=== PATIENT | female | born 1965 | race Caucasian/White ===

== ENCOUNTER 2019-10-29 15:14 | Outpatient (CLI) | payer OTHER, SELFPAY ==
--- NOTE | 2019-10-29 15:16 | MM_ITS ---
WS: [id number] BILATERAL DIGITAL SCREENING MAMMOGRAPHY WITH CAD CLINICAL INFORMATION: SCREENING HISTORY: Screening mammogram. Right nipple burning . COMPARISON: September 26, 2018 TECHNIQUE: Bilateral CC and MLO views. FINDINGS: The breasts are composed of heterogeneous fibroglandular density tissue, which can limit the detectio n of small underlying mass lesions. Increasing cluster of punctate calcifications, some in a ductal d istribution. Recommend spot compression magnification views. Left breast is unchanged. MM/[place] [id number] IMPRESSION: BI-RADS: 0-Incomplete: Need additional imaging evaluation FOLLOW UP: Need Additional Imaging
== END 2019-10-29 15:15 | disposition home or self-care (01) ==
LOC: RADSHAW 15:14
PROVIDERS: Family Provider Family Medicine; PCP Family Medicine; Visit Provider Family Medicine
DX: Z12.31 Encounter for screening mammogram for malignant neoplasm of breast (principal)
CPT/HCPCS: 77067

== ENCOUNTER 2019-12-14 10:18 | Outpatient (CLI) | payer OTHER, SELFPAY ==
--- NOTE | 2019-12-14 10:23 | MM_ITS ---
WS: [id number] RIGHT DIGITAL MAMMOGRAPHY WITH CAD CLINICAL INFORMATION: RT BREAST CALCIFICATIONS HISTORY: Additional views COMPARISON: October 29, 2019 TECHNIQUE: 5 views of the right breast were obtained. FINDINGS: Scattered fibroglandular densities of the right breast. Again seen is the cluster of punctate calcifi cations some in a ductal distribution lower inferior quadrant right breast. These have increased sinc e 2018 as previously described. Recommend further evaluation with stereotactic guided biopsy. MM/[place] [id number] IMPRESSION: BI-RADS: 4B-Suspicious: Intermediate FOLLOW UP: Stereotactic Biopsy Recommended
== END 2019-12-14 10:19 | disposition home or self-care (01) ==
LOC: RADSHAW 10:20
PROVIDERS: Family Provider Family Medicine; PCP Family Medicine; Visit Provider Family Medicine
DX: R92.1 Mammographic calcification found on diagnostic imaging of breast (principal)
CPT/HCPCS: 77065

== ENCOUNTER 2020-01-07 12:20 | Outpatient (CLI) | payer OTHER, SELFPAY ==
--- NOTE | 2020-01-07 12:38 | MM_ITS ---
WS: [id number] STEREOTACTIC RIGHT BREAST BIOPSY WITH VACUUM ASSISTANCE. History: Heterogeneous right breast calcifications. Biopsy recommended for suspicious calcifications. Comparison: December 14, 2019 Procedure, risks, and complications were discussed the patient who agreed to proceed. Prior imaging w as reviewed. Cluster of calcifications within the right breast are localized. Stereotactic imaging was performed. Patient was prepped and draped in usual sterile fashion. After 1% lidocaine, calcifications were targ eted stereotactically in the right breast. Small incision was made. Needle advanced into the cluster of calcifications right breast with imaging demonstrating appropriate position relative to the calcif ications. Multiple vacuum-assisted core biopsies were obtained x3. Postprocedure imaging demonstrates calcifications within the biopsy specimen. The biopsy cavity was lavaged. Titanium clip was placed at the biopsy site. Postprocedure imaging dem onstrates clip in good position. No immediate complications. MM/MM surgical specimen RT IMPRESSION: 1. Uncomplicated vacuum-assisted stereotactic biopsy of calcifications in the right breast. PATHOLOGY: - Hyalinized fibroadenoma with coarse microcalcifications - Usual ductal hyperplasia/florid epithelial hyperplasia, with microcalcificati ons - Fibrocystic change and focal columnar cell hyperplasia - No carcinoma in situ or invasive malignancy seen BI-RADS 3 PROBABLY BENIGN RECOMMEND 6 MONTH DIAGNOSTIC MAMMOGRAPHIC FOLLOW-UP POSTBIOPSY
--- NOTE | 2020-01-07 12:38 | MM_ITS ---
WS: [id number] STEREOTACTIC RIGHT BREAST BIOPSY WITH VACUUM ASSISTANCE. History: Heterogeneous right breast calcifications. Biopsy recommended for suspicious calcifications. Comparison: December 14, 2019 Procedure, risks, and complications were discussed the patient who agreed to proceed. Prior imaging w as reviewed. Cluster of calcifications within the right breast are localized. Stereotactic imaging was performed. Patient was prepped and draped in usual sterile fashion. After 1% lidocaine, calcifications were targ eted stereotactically in the right breast. Small incision was made. Needle advanced into the cluster of calcifications right breast with imaging demonstrating appropriate position relative to the calcif ications. Multiple vacuum-assisted core biopsies were obtained x3. Postprocedure imaging demonstrates calcifications within the biopsy specimen. The biopsy cavity was lavaged. Titanium clip was placed at the biopsy site. Postprocedure imaging dem onstrates clip in good position. No immediate complications. MM/MM biopsy RT vac assist [id number] IMPRESSION: 1. Uncomplicated vacuum-assisted stereotactic biopsy of calcifications in the right breast. PATHOLOGY: - Hyalinized fibroadenoma with coarse microcalcifications - Usual ductal hyperplasia/florid epithelial hyperplasia, with microcalcificati ons - Fibrocystic change and focal columnar cell hyperplasia - No carcinoma in situ or invasive malignancy seen BI-RADS 3 PROBABLY BENIGN RECOMMEND 6 MONTH DIAGNOSTIC MAMMOGRAPHIC FOLLOW-UP POSTBIOPSY
--- NOTE | 2020-01-07 12:38 | MM_ITS ---
WS: [id number] STEREOTACTIC RIGHT BREAST BIOPSY WITH VACUUM ASSISTANCE. History: Heterogeneous right breast calcifications. Biopsy recommended for suspicious calcifications. Comparison: December 14, 2019 Procedure, risks, and complications were discussed the patient who agreed to proceed. Prior imaging w as reviewed. Cluster of calcifications within the right breast are localized. Stereotactic imaging was performed. Patient was prepped and draped in usual sterile fashion. After 1% lidocaine, calcifications were targ eted stereotactically in the right breast. Small incision was made. Needle advanced into the cluster of calcifications right breast with imaging demonstrating appropriate position relative to the calcif ications. Multiple vacuum-assisted core biopsies were obtained x3. Postprocedure imaging demonstrates calcifications within the biopsy specimen. The biopsy cavity was lavaged. Titanium clip was placed at the biopsy site. Postprocedure imaging dem onstrates clip in good position. No immediate complications. MM/[place] [id number] IMPRESSION: 1. Uncomplicated vacuum-assisted stereotactic biopsy of calcifications in the right breast. PATHOLOGY: - Hyalinized fibroadenoma with coarse microcalcifications - Usual ductal hyperplasia/florid epithelial hyperplasia, with microcalcificati ons - Fibrocystic change and focal columnar cell hyperplasia - No carcinoma in situ or invasive malignancy seen BI-RADS 3 PROBABLY BENIGN RECOMMEND 6 MONTH DIAGNOSTIC MAMMOGRAPHIC FOLLOW-UP POSTBIOPSY
== END 2020-01-07 12:21 | disposition home or self-care (01) ==
LOC: RADSHAW 12:20
PROVIDERS: Family Provider Family Medicine; PCP Family Medicine; Visit Provider Family Medicine
DX: R92.1 Mammographic calcification found on diagnostic imaging of breast (principal); D24.1 Benign neoplasm of right breast; N62 Hypertrophy of breast
CPT/HCPCS: 19081; 77065; 88305; J2001

== ENCOUNTER 2020-02-25 09:38 | Outpatient (CLI) | payer OTHER, SELFPAY ==
--- NOTE | 2020-02-25 09:45 | XRR_ITS ---
PROCEDURE INFORMATION: Exam: XR Abdomen, 1 View Exam date and time: 02/25/2020 9:47 AM Age: 54 years old Clinical indication: Condition or disease; Other: Stone; Prior surgery; Surgery type: Hysto, gb TECHNIQUE: Imaging protocol: XR of the abdomen. Views: Frontal supine view of the abdomen. 1 View. COMPARISON: ID XR KUB [id number] 04/09/2017 2:00 PM FINDINGS: Gastrointestinal tract: Prominent stool, without bowel dilatation. Organs: Status post cholecystectomy. Stable 6 mm calcification overlying the left renal fossa, suggesting urolithiasis. Vasculature: Subcentimeter pelvic calcifications, presumably vascular in etiology. Bones/joints: Osteitis pubis. Degenerative change and mild scoliosis. XR/XR KUB [id number] IMPRESSION: 1. Stable 6 mm calcification overlying the left renal fossa, suggesting urolithiasis. 2. Additional findings as described above.
== END 2020-02-25 09:39 | disposition home or self-care (01) ==
LOC: RAD 09:42
PROVIDERS: PCP Family Medicine; Visit Provider Urology
DX: N20.0 Calculus of kidney (principal)
CPT/HCPCS: 74018; 81001

== ENCOUNTER 2020-07-26 08:13 | Outpatient (CLI) | payer OTHER, SELFPAY ==
--- NOTE | 2020-07-26 08:22 | MM_ITS ---
WS: [id number] RIGHT DIGITAL MAMMOGRAPHY WITH CAD CLINICAL INFORMATION: 6 MO F/U RT CALCIFICATION HISTORY: Six-month follow-up COMPARISON: January 07, 2020 TECHNIQUE: 10 views of the right breast were obtained. FINDINGS: Scattered fibroglandular densities of the right breast. Biopsy clip inferior right breast. Postoperat dmitry changes about the biopsy cavity improved. A few tiny punctate calcifications. Stable clustered ca lcifications inferior right breast. No significant interval changes. No suspicious focal mass, asymmetry, calcifications, or architectural distortion. No evidence of jose francisco gnancy. MM/[place] [id number] IMPRESSION: BI-RADS: 2-Benign FOLLOW UP: 1 Year Follow-up Recommend return to annual diagnostic mammography.
== END 2020-07-26 08:14 | disposition home or self-care (01) ==
PROVIDERS: PCP Family Medicine; Visit Provider Family Medicine
DX: R92.1 Mammographic calcification found on diagnostic imaging of breast (principal)
CPT/HCPCS: 77065

== ENCOUNTER → 2021-06-14 08:19 | Outpatient (BNVA) | payer OTHER, SELFPAY | PROVIDERS: PCP Nurse Practitioner Family; Visit Provider Nurse Practitioner Family | DX: N20.9 Urinary calculus, unspecified (principal); N39.0 Urinary tract infection, site not specified | CPT/HCPCS: 81003 ==

== ENCOUNTER 2021-06-29 15:05 | Outpatient (CLI) | payer OTHER, SELFPAY ==
--- NOTE | 2021-06-29 14:30 | XR_ITS ---
WS: [id number] Exam: XR KUB [id number] Date/Time of Exam: 06/29/2021 3:12 PM Reason For Exam: UROLITHIASIS Comparison 02/25/2020. No sign of bowel obstruction or free air. No calcifications noted in the region of the kidneys. Signs of prior cholecystectomy. No sign of organ enlargement. Degenerative changes of the lumbar spine. No nspecific pelvic calcifications noted. XR/XR KUB [id number] IMPRESSION: 1. No acute abdominal process identified.
== END 2021-06-29 15:06 | disposition home or self-care (01) ==
LOC: RAD 15:07
PROVIDERS: PCP Nurse Practitioner Family; Visit Provider Urology
DX: N20.9 Urinary calculus, unspecified (principal)
CPT/HCPCS: 74018; 81003

== ENCOUNTER 2021-07-21 09:27 | Outpatient (CLI) | payer OTHER, SELFPAY ==
--- NOTE | 2021-07-21 09:34 | XR_ITS ---
WS: [id number] Left foot, 3 views, 07/21/2021 Clinical Data: PAIN IN LEFT FOOT Comparison: None. Findings: No fractures or dislocations are seen. No bone destruction or erosion is noted. The joint spaces and soft tissues are normal. There is a plantar spur and an Achilles spur. XR/XR foot LT min 3V* [id number] Impression: Negative left foot.
== END 2021-07-21 09:28 | disposition home or self-care (01) ==
LOC: RAD 09:29
PROVIDERS: PCP Nurse Practitioner Family; Visit Provider Nurse Practitioner Family
DX: M79.672 Pain in left foot (principal)
CPT/HCPCS: 73630

== ENCOUNTER → 2021-07-27 15:35 | Outpatient (BNVA) | payer OTHER, SELFPAY | PROVIDERS: PCP Nurse Practitioner Family; Visit Provider Nurse Practitioner Family | DX: N39.0 Urinary tract infection, site not specified (principal) | CPT/HCPCS: 81003 ==

== ENCOUNTER 2021-09-11 06:52 | Outpatient (CLI) | payer OTHER, SELFPAY ==
--- NOTE | 2021-09-11 07:01 | MM_ITS ---
WS: [id number] SCREENING DIGITAL MAMMOGRAM WITH CAD HISTORY: SCREENING COMPARISON: 07/26/2020 10/29/2019 Bilateral CC and MLO views submitted. Computer aided detection analyzed. Breast composition: The breasts are heterogeneously dense, which may obscure small masses. No suspici ous masses, microcalcifications or architectural distortion. Biopsy clip inferomedial RIGHT breast. T here are a few additional benign scattered calcifications within each breast. MM/[place] [id number] IMPRESSION: BI-RADS: 2-Benign FOLLOW UP: 1 Year Follow-up
== END 2021-09-11 06:53 | disposition home or self-care (01) ==
LOC: RADSHAW 06:53
PROVIDERS: PCP Nurse Practitioner Family; Visit Provider Nurse Practitioner Family
DX: Z12.31 Encounter for screening mammogram for malignant neoplasm of breast (principal)
CPT/HCPCS: 77067

== ENCOUNTER → 2021-09-12 14:09 | Outpatient (BNVA) | payer OTHER, SELFPAY | PROVIDERS: PCP Nurse Practitioner Family; Referring Provider Nurse Practitioner Family; Visit Provider Podiatrist Foot & Ankle Surgery | DX: M79.672 Pain in left foot (principal); M79.671 Pain in right foot; M19.079 Primary osteoarthritis, unspecified ankle and foot | CPT/HCPCS: 73630 ==

== ENCOUNTER → 2021-12-08 08:41 | Outpatient (BNVA) | payer OTHER, SELFPAY | PROVIDERS: PCP Nurse Practitioner Family; Visit Provider Surgery | DX: Z20.822 Contact with and (suspected) exposure to COVID-19 (principal) | CPT/HCPCS: 87635 ==

== ENCOUNTER 2021-12-28 07:41 | Day surgery (SDC) | payer OTHER, SELFPAY ==
[2021-12-25 13:47] VITALS: BMI 40.6
[2021-12-28 08:14] VITALS: BP 177/98; PULSE 82; RESP 18; TEMP 36.1; O2SAT 99
[2021-12-28] MEDS: sodium chloride 0.9% 1,000 ML 30 ML IV (08:21)
--- NOTE | 2021-12-28 08:32 | ANES.PREANE2 ---
Pre-Anesthetic Assessment Height/Weight: Height 1.63 m Weight 107.501 kg Temp Pulse Resp BP Pulse Ox 97 F L 82 18 177/98 99 12/28/21 08:14 12/28/21 08:14 12/28/21 08:14 12/28/21 08:14 12/28/21 08:14 Preop Diagnosis: History of colon polyps Operation Date: 12/28/21 09:00 Proposed Procedures p Colonoscopy 40536 Z86.010(Not Applicable) - Leighton Myers MD Familial anesthetic complications: None Was Beta Shay taken within 24 hours: N/A Was Clonidine taken within 24 hours: N/A Last intake: Intake Last Liquid Date 12/27/21 Last Liquid Time 22:30 Last Solid Date 12/26/21 Last Solid Time 18:00 Social No alcohol and No tobacco Exam alert, oriented x 3, clear to auscultation bilaterally and regular rate & rhythm Airway Submandibular: within normal limits Cervical ROM: within normal limits Mallampati: Class II Dentition: full CV/HEM Hypertension Metabolic Morbid Obesity Anesthetic Plan ASA status: 2 Anesthesia: MAC Medications/Allergies Home Medications Medication Instructions Recorded Confirmed Last Taken Type hydrochlorothiazide 12.5 mg tablet 12.5 mg PO DAILY 02/25/20 12/25/21 12/27/21 History meclizine 25 mg tablet 25 mg PO DAILY PRN 02/25/20 12/25/21 12/24/21 History multivitamin,ct-qzue-ktfhrhqf 1 tab PO DAILY 02/25/20 12/25/21 12/26/21 History (Complete Multivitamin) potassium chloride 20 mEq 20 meq PO BID 02/25/20 12/25/21 12/27/21 History tablet,extended release nitrofurantoin See Rx Instructions .ROUTE 12/22/21 12/25/21 Unknown Rx monohydrate/macrocrystals 100 mg .COMPLEX #60 cap capsule amlodipine 5 mg tablet 5 mg PO DAILY 12/25/21 12/25/21 12/27/21 History Allergies Allergy/AdvReac Type Severity Reaction Status Date / Time meperidine [From Demerol] Allergy N/V Verified 10/23/21 08:09 propranolol [From Inderal LA] Allergy Palpitation Verified 10/23/21 08:09 s Current Medications Generic Name Dose Route Start Last Admin Trade Name Freq PRN Reason Stop Dose Admin Sodium Chloride 1,000 mls @ 30 mls/hr 12/28/21 08:00 12/28/21 08:21 Sodium Chloride 0.9% IV 30 mls/hr .Q24H WILL Administration PFSH Anesthesia Medical History Diverticulosis Hypertension Recurrent UTI Urolithiasis Multistone former. Followed by Dr. Cates Surgical History H/O dilation and curettage (~1999) H/O dilation and curettage (~1995) H/O lithotripsy (~1991) History of bilateral tubal ligation S/P laparoscopic cholecystectomy (07/23/13) Performed by Dr. Reinoso at [facility] in [place], [place] S/P thyroid biopsy S/P tonsillectomy (~1968) S/P total abdominal hysterectomy (03/24/02) With RSO. Dx: Uterine fibroids, Menorrhagia. Performed by Dr. Mayfield at [facility] in [place], [place] Status post breast biopsy Family History Family/Other Colon cancer Maternal uncle Mother Hypertension Thyroid disease Father Hypertension Social History Alcohol intake: never Marital status: Current occupational status: retired History of recent travel: No Data Anesthesia Cardiac Studies: No Data to Display
--- NOTE | 2021-12-28 08:44 | P.HP_ITS ---
Same Day Surgery H&P Indication for Procedure/HPI DATE OF PROCEDURE: December 28, 2021 CHIEF COMPLAINT/INDICATIONFOR SURGICAL PROCEDURE: History of polyps PREOP DIAGNOSIS: History of colon polyps PLANNED PROCEDURE: Operation Date: 12/28/21 09:00 Proposed Procedures p Colonoscopy 48502 Z86.010(Not Applicable) - Leighton Myers MD Ms. Oneill is a pleasant 56-year-old female patient referred to my practice for colonoscopy.? Patient did have a colonoscopy back in 2019 and a sigmoid colon polyp was removed and patient was advised to have a surveillance colonoscopy in couple of years.? Patient at that time had bleeding per rectum and had an associated diverticulosis occupying the descending and sigmoid colon.? Patient today denies bleeding per rectum or history of colon cancer. 12/28/2021 Patient comes today for surveillance colonoscopy ROS All systems have been reviewed negative except as per the above or per problem list Medications/Allergies* Home Medications Medication Instructions Recorded Confirmed Type hydrochlorothiazide 12.5 mg tablet 12.5 mg PO DAILY 02/25/20 12/25/21 History meclizine 25 mg tablet 25 mg PO DAILY PRN 02/25/20 12/25/21 History multivitamin,iw-nbig-eqchhosv 1 tab PO DAILY 02/25/20 12/25/21 History (Complete Multivitamin) potassium chloride 20 mEq 20 meq PO BID 02/25/20 12/25/21 History tablet,extended release amlodipine 5 mg tablet 5 mg PO DAILY 12/25/21 12/25/21 History Allergies/Adverse Reactions Allergy/AdvReac Type Severity Reaction Status Date / Time meperidine [From Demerol] Allergy N/V Verified 12/28/21 08:45 propranolol [From Inderal LA] Allergy Palpitation Verified 12/28/21 08:45 s Current Medications: Generic Name Dose Route Start Last Admin Trade Name Freq PRN Reason Stop Dose Admin Sodium Chloride 1,000 mls @ 30 mls/hr 12/28/21 08:00 12/28/21 08:21 Sodium Chloride 0.9% IV 30 mls/hr .Q24H WILL Administration Pertinent History/Comorbid Conditions* Medical History (Updated 10/27/21 @ 12:05 by Burak Gastelum DPM) Diverticulosis Hypertension Recurrent UTI Urolithiasis Multistone former. Followed by Dr. Cates Surgical History (Updated 06/13/20 @ 17:56 by Lenny Mayfield MD) H/O dilation and curettage (~1999) H/O dilation and curettage (~1995) H/O lithotripsy (~1991) History of bilateral tubal ligation S/P laparoscopic cholecystectomy (07/23/13) Performed by Dr. Reinoso at [facility] in [place], [place] S/P thyroid biopsy S/P tonsillectomy (~1968) S/P total abdominal hysterectomy (03/24/02) With RSO. Dx: Uterine fibroids, Menorrhagia. Performed by Dr. Mayfield at [facility] in [place], [place] Status post breast biopsy Family History (Updated 06/10/20 @ 08:53 by Shantell Browne) Colon cancer Family/Other Maternal uncle Hypertension Mother Father Thyroid disease Mother Social History Alcohol intake: never Marital status: Current occupational status: retired History of recent travel: No Pertinent Exam Findings alert, oriented x 3 and procedure specific exam findings (Abdominal examination nontender nondistended soft) Recommendations Surgery/Procedure today (Surveillance colonoscopy) Coding Level of Care Code Acute Cook Italian Style Food for Chg Pierre
[2021-12-28 09:54] VITALS: BP 103/68; PULSE 92; RESP 16; TEMP 36.2; O2SAT 95
[2021-12-28 10:09] VITALS: BP 111/71; PULSE 78; RESP 16; O2SAT 97
--- NOTE | 2021-12-28 10:15 | ANE.PACU2 ---
Inpatient post-anesthesia follow up: Airway intact: Yes Vital signs: Temperature 97.1 F Pulse Rate 78 Respiratory Rate 16 Blood Pressure 111/71 Pulse Oximetry 97 Oxygen Delivery Me thod Room Air Oxygen Flow Rate Fraction of Inspir ed Oxygen Hydration adequate: Yes Nausea and vomiting: No Pain level: 1 Mental status: Baseline
== END 2021-12-28 10:30 | disposition home or self-care (01) ==
PROVIDERS: PCP Nurse Practitioner Family; Visit Provider Surgery
PROC: 0DJD8ZZ Inspection of Lower Intestinal Tract, Via Natural or Artificial Opening Endoscopic (ICD-10-PCS; CPT 45378; principal; 2021-12-28 09:00)
DX: Z12.11 Encounter for screening for malignant neoplasm of colon (principal); Z86.010 Personal history of colon polyps; K57.30 Diverticulosis of large intestine without perforation or abscess without bleeding; I10 Essential (primary) hypertension; E66.01 Morbid (severe) obesity due to excess calories; Z68.41 Body mass index [BMI] 40.0-44.9, adult
CPT/HCPCS: 45378; J2704; J7030

== ENCOUNTER → 2022-01-19 08:05 | Outpatient (BNVA) | payer OTHER, SELFPAY | PROVIDERS: PCP Nurse Practitioner Family; Visit Provider Nurse Practitioner Family | DX: N39.0 Urinary tract infection, site not specified (principal) | CPT/HCPCS: 81003 ==

== ENCOUNTER 2022-05-01 09:20 | Emergency (ER) | payer OTHER, SELFPAY ==
--- NOTE | 2022-05-01 09:22 | XRR_ITS ---
PROCEDURE INFORMATION: Exam: XR Chest Exam date and time: 05/01/2022 9:43 AM Age: 56 years old Clinical indication: Radiating; Prior surgery; Surgery type: Gallbladder; Patient HX: Cp started as transient just when coughing, is constant now, upper left chest and pain radiates to left arm; Additional info: Chest pain TECHNIQUE: Imaging protocol: Radiologic exam of the chest. Views: 1 view. COMPARISON: CR XR KUB [id number] 06/29/2021 3:16 PM FINDINGS: Lungs: Unremarkable. No consolidation. Pleural spaces: Unremarkable. No pleural effusion. No pneumothorax. Heart/Mediastinum: Unremarkable. No cardiomegaly. Bones/joints: Unremarkable. XR/XR chest 1V portable [id number] IMPRESSION: No acute findings.
[2022-05-01 09:27] VITALS: BP 148/84; PULSE 101; RESP 16; TEMP 36.7; O2SAT 97; BMI 40.5
--- NOTE | 2022-05-01 09:38 | ECG_ITS ---
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 Measurements Intervals [place] Rate: 91 P: 14 RI: 145 QRS: -21 QRSD: 105 T: 1 QT: 373 QTc: 460 Interpretive Statements SINUS RHYTHM WITH OCCASIONAL VENTRICULAR PREMATURE COMPLEXES BORDERLINE LEFT AXIS DEVIATION [QRS AXIS < -20] No previous ECG available for comparison Electronically Signed On 05-01-2022 21:10:04 CDT by Gurpreet Slater M.D. [email or web address]
[2022-05-01 10:00] VITALS: BP 143/89; PULSE 10; RESP 18
[2022-05-01] MEDS: aspirin 81 mg Chew Tablet 324 MG PO (10:16)
[2022-05-01 10:43] LABS: Basophils # 0.1 10^3/uL (0.0-0.1); Basophils % 0.7 %; Eosinophils # 0.2 10^3/uL (0.0-0.8); Eosinophils % 2.2 %; Hematocrit 43.8 % (37.0-47.0); Hemoglobin 14.5 g/dL (11.5-15.3); Lymphocytes # 1.7 10^3/uL (0.8-4.8); Mean Corpuscular HGB Conc 33.1 g/dL (30.0-36.0); Mean Corpuscular Hemoglobin 28.5 pg (28.0-34.0); Mean Corpuscular Volume 86.2 fl (81-99); Mean Platelet Volume 9.3 fL (7.4-10.4); Monocytes # 0.4 10^3/uL (0.2-0.9); Monocytes % 6.1 %; Neutrophils # 4.61 10^3/uL (1.8-7.7); Neutrophils % 66.4 %; Nucleated Red Blood Cells % 0 %; Platelet Count 291 10^3/cmm (130-400); Red Blood Count 5.08 10^6/uL (4.1-5.3); Red Cell Distribution Width 13.2 % (12.1-15.1); White Blood Count 6.9 10^3/uL (4.0-10.0)
[2022-05-01 10:45] VITALS: BP 163/90; RESP 18; O2SAT 95
--- NOTE | 2022-05-01 11:01 | W.ED.CHESTPA ---
HPI - Chest Pain General: Chief Complaint: Chest Pain Stated Complaint: Chest Pain Time Seen by Provider: 05/01/22 09:51 Source: patient Mode of arrival: ambulatory Limitations: no limitations History of Present Illness: 56-year-old female presents emergency room complaining of chest pain. She intermittently having episodes of chest discomfort she relates them to eructations. She is tried Tums and various [id number] medicines for stomach socks it does not really seem to help. Today she had 1 while she was watching television seemed more intense than she had previously and radiated down her left arm. That has for the most part resolved. She did get a little bit diaphoretic and short of breath with it however states she feels like she get hot flashes often and has a diaphoresis of the preceding these episodes of chest pain. She recently was started on metformin but not given a formal diagnosis of diabetes evidently. She has a known history of hypertension which she admits is poorly controlled. She has no known history of coronary artery disease or family history of coronary disease she does not smoke or use drink alcohol. MD complaint: chest pain Onset (ago): day(s) Timing of current episode: episodic Prior episodes: Yes Onset: after eating Pain location: left chest and epigastric Severity: mild Quality: aching and heaviness Relieving factors: nothing Exacerbating factors: eating Associated symptoms: Deny abdominal pain, diaphoresis, dyspnea, fever(s), leg edema, nausea, palpitations, sense of impending doom, syncope or vomiting Review of Systems Const: Denies: fever(s), chills, fatigue, malaise or diaphoresis ENMT: Denies: throat pain, ear or mastoid pain, nasal discharge or nasal congestion Card: Denies: palpitations or syncope Resp: Denies: dyspnea GI: Denies: abdominal pain, nausea or vomiting : Denies: flank pain, difficulty voiding, dysuria, urinary frequency or urinary urgency Skin/Breast: Denies: rash or pruritus PFSH ED PFSH: Medical History Diverticulosis Hypertension Recurrent UTI Urolithiasis Multistone former. Followed by Dr. Cates Surgical History H/O dilation and curettage (~1999) H/O dilation and curettage (~1995) H/O lithotripsy (~1991) History of bilateral tubal ligation S/P laparoscopic cholecystectomy (07/23/13) [place] [facility] [place] S/P thyroid biopsy S/P tonsillectomy (~1968) S/P total abdominal hysterectomy (03/24/02) With RSO. Dx: Uterine fibroids, Menorrhagia. [place] [facility] [place] Status post breast biopsy Family History Family/Other Colon cancer Maternal uncle Mother Hypertension Thyroid disease Father Hypertension Social History Smoking and tobacco status: never smoked Alcohol intake: never Marital status: Current occupational status: retired History of recent travel: No Physical Exam Const: COMMON NORMALS: no acute distress GENERAL APPEARANCE: cooperative and comfortable ORIENTATION/CONSCIOUSNESS: Yes awake, Yes oriented to person, Yes oriented to place and Yes oriented to time HENMT: COMMON NORMALS: normocephalic, atraumatic, hearing grossly normal bilaterally, external ears normal, EAC's normal, TM's normal bilaterally, Normal nasal mucous membranes and turbinates present, moist oral mucous membranes and oropharynx normal HEAD & SCALP: normocephalic and atraumatic NOSE: Normal nasal mucous membranes and turbinates present EXTERNAL EAR: Yes external ears normal EXTERNAL AUDITORY CANAL: EAC's normal TYMPANIC MEMBRANE: TM's normal bilaterally Eye: COMMON NORMALS: Equal, round and reactive pupils present, EOMs intact bilaterally, conjunctivae normal and no scleral icterus CONJUNCTIVA: Yes conjunctivae normal PUPIL: Yes Equal, round and reactive pupils present Neck/C-Spine: COMMON NORMALS: full ROM, no lymphadenopathy, supple and no JVD Lymph: LYMPHATIC: no lymphadenopathy noted and no lymphedema noted Resp: COMMON NORMALS: normal respiratory effort, No retractions, No use of accessory muscles and clear to auscultation bilaterally AUSCULTATION: clear to auscultation bilaterally Cardio: COMMON NORMALS: no JVD, regular rate, regular rhythm and No murmurs present (Cardio) RATE: regular rate RHYTHM: regular rhythm GI: COMMON NORMALS: Soft to palpation and No hepatosplenomegaly present AUSCULTATION: Yes normoactive bowel sounds PALPATION: Yes Soft to palpation, No Tenderness to palpation present (GI), No Guarding due to palpation present (GI) and Yes No hepatosplenomegaly present Extremity: COMMON NORMALS: normal to inspection, capillary refill normal, no clubbing, cyanosis or edema, no calf tenderness and no pedal edema Neuro: SENSORIUM/ORIENTATION: Yes oriented to person, Yes oriented to place and Yes oriented to time Skin: COMMON NORMALS: no rashes or lesions noted GENERAL SKIN EXAM: no rashes or lesions noted Course Vital Signs: Vital signs: Vital Signs Temperature 98.1 F 05/01/22 09:27 Pulse Rate 78 05/01/22 15:35 Respiratory Rate 14 05/01/22 15:35 Blood Pressure 135/73 05/01/22 13:26 Pulse Oximetry 99 05/01/22 15:35 Oxygen Delivery Me thod 05/01/22 13:26 MDM - Chest Pain Medical Decision Making Labs imaging and EKG reviewed patient stable there is no significant abnormality. Her troponin delta is unremarkable. Was started on isosorbide mononitrate decrease amlodipine to 5 mg daily and add isosorbide mononitrate stop hydrochlorothiazide. Follow-up with primary care doctor within the week and reevaluate blood pressure. Set up outpatient stress testing. Medical Records I reviewed the patient's medical records. Lab Data I reviewed the patient's lab results. : 05/01/22 10:33 05/01/22 10:33 Radiology Impressions Chest X-Ray 05/01/22 09:22 IMPRESSION: No acute findings. Laboratory Results WBC 6.9 10^3/uL (4.0-10.0) 05/01/22 10:33 RBC 5.08 10^6/uL (4.1-5.3) 05/01/22 10:33 Hgb 14.5 g/dL (11.5-15.3) 05/01/22 10:33 Hct 43.8 % (37.0-47.0) 05/01/22 10:33 MCV 86.2 fl (81-99) 05/01/22 10:33 MCH 28.5 pg (28.0-34.0) 05/01/22 10:33 MCHC 33.1 g/dL (30.0-36.0) 05/01/22 10:33 RDW 13.2 % (12.1-15.1) 05/01/22 10:33 Plt Count 291 10^3/cmm (130-400) 05/01/22 10:33 MPV 9.3 fL (7.4-10.4) 05/01/22 10:33 Neut % (Auto) 66.4 % 05/01/22 10:33 Lymph % (Auto) 24.0 % 05/01/22 10:33 [place] % (Auto) 6.1 % 05/01/22 10:33 Eos % (Auto) 2.2 % 05/01/22 10:33 Baso % (Auto) 0.7 % 05/01/22 10:33 Neut # (Auto) 4.61 10^3/uL (1.8-7.7) 05/01/22 10:33 Lymph # (Auto) 1.7 10^3/uL (0.8-4.8) 05/01/22 10:33 [place] # (Auto) 0.4 10^3/uL (0.2-0.9) 05/01/22 10:33 Eos # (Auto) 0.2 10^3/uL (0.0-0.8) 05/01/22 10:33 Baso # (Auto) 0.1 10^3/uL (0.0-0.1) 05/01/22 10:33 Nucleated RBC % (auto) 0 % 05/01/22 10:33 Nucleated RBCs # 0.0 /100WBC 05/01/22 10:33 Sodium 141 mmol/L (136-145) 05/01/22 10:33 Potassium 3.8 mmol/L (3.5-5.1) 05/01/22 10:33 Chloride 104 mmol/L (98-107) 05/01/22 10:33 Carbon Dioxide 19 mmol/L (22-29) L 05/01/22 10:33 Anion Gap 21.8 (5-19) H 05/01/22 10:33 BUN 11 mg/dL (6-20) 05/01/22 10:33 Creatinine 0.4 mg/dL (0.5-0.9) L 05/01/22 10:33 GFR Calculation 165.1 mL/min (90-130) H 05/01/22 10:33 Glucose 141 mg/dL (65-115) H 05/01/22 10:33 Calculated Osmolality 294 mOsm/kg (285-295) 05/01/22 10:33 Calcium 9.3 mg/dL (8.5-10.5) 05/01/22 10:33 Total Bilirubin 0.4 mg/dL (0.15-1.2) 05/01/22 10:33 AST 24 U/L (0-32) 05/01/22 10:33 ALT 31 U/L (0-33) 05/01/22 10:33 Alkaline Phosphatase 75 IU/L (35-105) 05/01/22 10:33 Troponin T Baseline 6 ng/L (0-10) 05/01/22 10:33 Troponin T 120 Minute 6.74 ng/L (0-10) 05/01/22 12:26 Delta Troponin T 0.74 ABS# (0-10) 05/01/22 12:26 Total Protein 6.6 g/dL (6.6-8.7) 05/01/22 10:33 Albumin 3.9 g/dL (3.5-5.2) 05/01/22 10:33 Globulin 2.7 g/dL (1.3-4.6) 05/01/22 10:33 Discharge Plan Discharge Patient Disposition: Home Clinical Impression: Chest pain Condition: Stable Prescriptions: New isosorbide mononitrate 30 mg tablet extended release 24 hr 30 mg PO DAILY Qty: 30 0RF aspirin 81 mg tablet,delayed release (DR/EC) 81 mg PO DAILY Qty: 30 0RF Changed amlodipine 5 mg tablet 5 mg PO DAILY Qty: 30 0RF Discontinued hydrochlorothiazide 25 mg Tablet 12.5 mg PO DAILY No Action potassium chloride 20 mEq tablet extended release 20 meq PO BID meclizine 25 mg tablet 25 mg PO DAILY PRN (Reason: Dizziness) metformin 500 mg tablet 500 mg PO BID black cohosh 540 mg Capsule 20 mg PO DAILY Centrum Silver Women 8 mg iron-400 mcg-300 mcg Tablet 1 tab PO DAILY Discharge Orders: Discharge ED (Routine); Ordered 05/01/22 Ordered By: Ralph Sloan Referrals: Friend,BRIAN HollinsP [Primary Care Provider] - Discharge Diet: Usual diet Discharge Activity: Limit activity as instructed Patient Instructions: Opioid Safety Activity Restrictions/Additional Instructions: Case management will make arrangements ratable outpatient Maxi espinosa stress test Coding Level of Care Code ED Steel Spar Operator for Godfrey Fwdebra Exam Comprehensive
[2022-05-01 11:06] LABS: Alanine Aminotransferase 31 U/L (0-33); Albumin Level 3.9 g/dL (3.5-5.2); Alkaline Phosphatase 75 IU/L (35-105); Blood Urea Nitrogen 11 mg/dL (6-20); Calcium 9.3 mg/dL (8.5-10.5); Carbon Dioxide 19 mmol/L (22-29); Chloride 104 mmol/L (98-107); Globulin 2.7 g/dL (1.3-4.6); Glomerular Filtration Rate 165.1 mL/min (90-130); Glucose 141 mg/dL (65-115); Osmolality Calculated 294 mOsm/kg (285-295); Sodium 141 mmol/L (136-145); Total Bilirubin 0.4 mg/dL (0.15-1.2); Total Protein 6.6 g/dL (6.6-8.7)
[2022-05-01 11:07] LABS: Anion Gap 21.8 (5-19); Aspartate Amino Transferase 24 U/L (0-32); Potassium 3.8 mmol/L (3.5-5.1); Troponin(5th) Baseline 6 ng/L (0-10)
--- NOTE | 2022-05-01 11:36 | ECG_ITS ---
[facility] Test Date: 2022-05-01 Pat Name: Teodora Oneill Department: Room: Gender: Female Spout Liner: : 1965 Requested By: Susan Cervantes Order Number: [id number] Smooth MD: Gurpreet Slater M.D. Measurements Intervals Nimitz Rate: 78 P: 25 PA: 145 QRS: -13 QRSD: 108 T: 12 QT: 408 QTc: 468 Interpretive Statements SINUS RHYTHM Nonspecific T wave changes Compared to ECG 05/01/2022 09:38:13 Ventricular premature complex(es) no longer present Electronically Signed On 05-02-2022 6:44:16 CDT by Gurpreet Slater M.D. [email or web address]
[2022-05-01 13:26] VITALS: BP 135/73; PULSE 88; RESP 14; O2SAT 98
[2022-05-01 14:16] LABS: Troponin 5 2HR 6.74 ng/L (0-10)
[2022-05-01 14:17] LABS: Troponin 5 2HR Delta 0.74 ABS# (0-10)
[2022-05-01 15:35] VITALS: PULSE 78; RESP 14; O2SAT 99
--- NOTE | 2022-05-15 11:23 | DCPLANNER ---
Addendum entered by Dayami Grullon 06/22/22 12:31: Patient had an outpatient stress test scheduled - patient did attend appointment. Original Note: wastewater manager had message to schedule an out patient stress test for patient. wastewater manager faxed signed order to centralized scheduling, who will call patient with appointment information.
== END 2022-05-01 15:37 | disposition home or self-care (01) ==
PROVIDERS: Physician Assistant; Emergency Provider Family Medicine; PCP Nurse Practitioner Family
DX: R07.9 Chest pain, unspecified (principal); Z79.84 Long term (current) use of oral hypoglycemic drugs; I10 Essential (primary) hypertension
CPT/HCPCS: 71045; 80053; 84484; 85025; 93005; 99285

== ENCOUNTER 2022-05-25 06:53 | Outpatient (CLI) | payer OTHER, SELFPAY ==
[2022-05-25 07:25] VITALS: BMI 40.8
--- NOTE | 2022-05-25 07:28 | NMCV_ITS ---
NM shayan perf SPECT r/s* [id number] Teodora Oneill Age: 56 Gender: F : 1965 Exam Date: 05/25/2022 08:17 Ordering Phys: Ralph lSoan DO Technologist: LISSETH Gage Exam Location: [facility] Indications: CHEST PAIN STRESS TEST Please see separate stress test report in [facility] for full findings IMAGE PROTOCOL Rest/Stress 1 Lexiscan Day Radiopharmaceutical Dose (mCi) Administration Site Administered by Rest: Tc-99m 10.5 IV LISSETH Naik Sestamibi Stress:Tc-99m 32.8 IV LISSETH Naik Sestamibi Rest: 25-May-2022 60 Discovery 630 Stress: 25-May-2022 30 Discovery 630 0.4mg Lexiscan. Images obtained in supine and prone position. SPECT RESULTS Technical Quality: Excellent Raw Data Analysis: Normal Image Corrections: No attenuation or motion correction applied Summed Stress Score: 10 Summed Rest Score: 6 Summed Difference Score: 4 PERFUSION FINDINGS Moderate area of moderately decreased tracer uptake in the mid inferolateral, apical anterior, lateral, inferior and LV apex. some reversibility was noted in these regions FUNCTIONAL RESULTS (calculated via Gated SPECT) Stress Image LV EF (%): 47 Stress EDV (mL):168 TID: 0.93 Stress ESV (mL):89 FUNCTIONAL FINDINGS: Segmental wall motion analysis revealed mild diffuse hypokinesis of the septum and the LV apex IMPRESSIONS 1. Myocardial perfusion imaging revealing moderate area of moderately decreased tracer uptake in the inferolateral and apical regions with some reversibility suggesting ischemia mostly in the distribution of the left circumflex artery with some involvement of the right coronary artery and left anterior descending artery terrtories. 2. Slightly diminished LV ejection fraction of 47%. 3. LV wall motion abnormalities as mentioned above. 4. Mildly dilated LV cavity with an end-systolic volume of 89 ml. No similar previous studies are available for comparison Dr Gurpreet Slater MD [facility] (Electronically Signed) Final Date: 28 May 2022 09:54 S
--- NOTE | 2022-05-25 07:28 | ECG_ITS ---
[facility] Test Date: 2022-05-25 Pat Name: Teodora Oneill Department: Room: Gender: Female Route Service Representative: : 1965 Requested By: Ralph Rizzo Order Number: [id number] Smooth MD: Gurpreet Slater M.D. Interpretive Statements NAME OF STUDY: LEXISCAN SESTAMIBI STRESS TEST INDICATION: Atypical Chest Pain, PROCEDURE: At the baseline, the EKG revealed normal sinus rhythm with diffuse nonspecific T wave changes. The baseline heart was 78 bpm with a blood pressue of 132/82 mm of Hg Lexiscan was infused over a period of 20 seconds. A total of 0.4 milligrams of Lexiscan was infused. The stress phase was continued for a total of 5 minutes. Heart rate at the end of the stress phase was 98 bpm with a blood pressure 141/84. The EKG at the peak infusion revealed no significant changes. Occasional PVCs were noted on the monitor. Sestamibi was injected 20 seconds after the Lexiscan infusion. Heart rate at the end of the recovery phase was 94 bpm with a blood pressure of 140/85 mmof Hg. CONCLUSION: 1. No significant EKG changes with the LexiScan infusion 2. No LexiScan induced chest pain or cardiac arrhythmia 3. Normal blood pressure and heart rate response 4. Sestamibi/sestamibi perfusion scan pending; see separate report. Electronically Signed On 05-25-2022 16:13:45 CDT by Gurpreet Slater M.D. [email or web address]
[2022-05-25] MEDS: regadenoson 0.4 Mg/5 ml Syringe IVP (08:54)
[2022-05-25 09:08] VITALS: BP 140/85; PULSE 92
== END 2022-05-25 06:54 | disposition home or self-care (01) ==
PROVIDERS: PCP Nurse Practitioner Family; Visit Provider Family Medicine
DX: R07.89 Other chest pain (principal)
CPT/HCPCS: 78452; 93017; A9500; J2785

== ENCOUNTER → 2022-08-14 07:47 | Outpatient (BNVA) | payer OTHER, SELFPAY | PROVIDERS: PCP Nurse Practitioner Family; Visit Provider Urology | DX: N20.9 Urinary calculus, unspecified (principal); N39.0 Urinary tract infection, site not specified | CPT/HCPCS: 81003 ==

== ENCOUNTER 2022-08-30 08:59 | Outpatient (CLI) | payer OTHER, SELFPAY ==
--- NOTE | 2022-08-30 09:15 | USCV_ITS ---
Teodora Oneill Age: 57 Gender: F : 1965 Exam Date: 08/30/2022 09:25 Ordering Phys: Gurpreet Slater MD ([email or web address]) Technologist: MEET [place]am [place] [facility] [place]ication: CHEST PAIN BP: 148 / 72 HR: 83 Rhythm: Sinus Technical Quality: Adequate MEASUREMENTS (Male / Female) Normal Values 2D ECHO LVOT Diameter 1.9 cm LV Ejection Fraction MOD 2C 63.9 % LV Ejection Fraction 2C AL 63.9 % LA Diameter 4.0 cm LA Width 3.3 cm LA Height 5.0 cm RA Width 4.0 cm RA Height 4.0 cm Aorta at Sinotubular Diameter 2.5 cm IVC Diameter 1.6 cm M-MODE Aortic Annulus Diameter 3.1 cm LA Ao Ratio MM 1.2 MV E Point Septal Separation 0.6 cm DOPPLER AV Peak Velocity 195.0 cm/s LVOT Peak Velocity 107.0 cm/s AV Area Cont Eq vti 1.6 cm squared AV Area Cont Eq pk 1.6 cm squared MV Peak Velocity 87.0 cm/s MV Area PHT 5.0 cm squared Mitral E to A Ratio 0.9 MV E' Velocity 41.5 cm/s Mitral E to MV E' Ratio 6.4 Mitral E to LV E' Lateral Ratio 6.0 Mitral E to LV E' Septal Ratio 6.8 TR Peak Velocity 178.2 cm/s TR Peak Gradient 12.7 mmHg TR Mean Velocity 155.4 cm/s TR Mean Gradient 9.6 mmHg TR Velocity Time Integral 48.6 cm TV Peak E Velocity 43.0 cm/s Right Atrial Pressure 3.0 mmHg Pulmonary Artery Systolic Pressu 15.7 mmHg PV Peak Velocity 97.0 cm/s RV Acceleration Time 0.1 s RV Ejection Time 0.3 s RV AcT/ET 0.5 FINDINGS Left Ventricle Normal left ventricular size, systolic function and wall thickness, with no regional wall motion abnormalities. Left ventricular ejection fraction is estimated at 65 %. Normal diastolic function. Right Ventricle Normal right ventricular size and systolic function. Right ventricular systolic pressure 15.7 mmHg. Right Atrium Normal right atrial size. Left Atrium Normal left atrial size. Mitral Valve Structurally normal mitral valve. No mitral valve stenosis. Trace mitral valve regurgitation. Aortic Valve Structurally normal trileaflet aortic valve. No aortic valve stenosis. No aortic valve regurgitation. Tricuspid Valve Structurally normal tricuspid valve. Trace tricuspid valve regurgitation. Pulmonic Valve Structurally normal pulmonic valve. No pulmonary valve stenosis. Trace pulmonary valve regurgitation. Pericardium No pericardial effusion. Aorta Normal size aortic root and proximal ascending aorta. IVC Normal IVC dimension with >50% respiratory change of the inferior vena cava. CONCLUSIONS 1. Normal left ventricular size, systolic function and wall thickness, with no regional wall motion abnormalities. Left ventricular ejection fraction is estimated at 65 %. Normal diastolic function. 2. Normal right ventricular size and systolic function. 3. Trace mitral and tricuspid valve regurgitation. 4. Normal pulmonary artery pressure. 5. No prior similar studies to compare. Brenda Tillman MD (Electronically Signed) Final Date: 03 September 2022 13:21 S
== END 2022-08-30 09:00 | disposition home or self-care (01) ==
PROVIDERS: PCP Nurse Practitioner Family; Visit Provider Internal Medicine Cardiovascular Disease
DX: R07.9 Chest pain, unspecified (principal); I08.1 Rheumatic disorders of both mitral and tricuspid valves
CPT/HCPCS: 93306

== ENCOUNTER 2022-09-20 12:28 | Outpatient (CLI) | payer OTHER, SELFPAY ==
--- NOTE | 2022-09-20 12:42 | MM_ITS ---
WS: [email or web address] VIEWS: MLO and CC views both breasts. 3D digital tomosynthesis is also included in this exam. Comparison made with prior exam of 09/11/2021, 07/26/2020.. Findings: Questionable new 1 cm nodular density in the medial right breast at posterior depth. The nodule is sl ightly medial to the nipple line. Magnification compression spot views and regional ultrasound would be suggested for further workup. No new finding in the left breast. The breasts are heterogeneously dense MM/[place] [id number] Impression: BI-RADS: 0-Incomplete: Need additional imaging evaluation FOLLOW-UP: See Report This mammogram was also analyzed by the Computer Aided Detection System R2 Imag e Gsa Coordinator.
== END 2022-09-20 12:29 | disposition home or self-care (01) ==
LOC: RAD 12:30
PROVIDERS: PCP Nurse Practitioner Family; Visit Provider Nurse Practitioner Family
DX: Z12.31 Encounter for screening mammogram for malignant neoplasm of breast (principal)
CPT/HCPCS: 77063; 77067

== ENCOUNTER 2022-10-25 14:13 | Outpatient (CLI) | payer OTHER, SELFPAY ==
--- NOTE | 2022-10-25 14:25 | US_ITS ---
WS: [email or web address] Exam: US breast RT limited* [id number] Date/Time of Exam: 10/25/2022 3:08 PM Reason For Exam: ABNORMAL MAMMO The medial lower quadrant of the right breast is targeted for ultrasound evaluation. There was no sig n of suspicious solid mass or nodule. The previously questioned nodule identified on recent mammograp hy is not identified. A right mammogram in 6 months for surveillance would be indicated for this leigh ent. US/US breast RT limited* [id number] IMPRESSION: 1. No suspicious ultrasound findings.
--- NOTE | 2022-10-25 14:25 | MM_ITS ---
WS: [email or web address] VIEWS: Magnification spot compression images of the right breast in the CC and MLO projections are ob tained as well as a straight 90 degree lateral view of the right breast. 3D digital tomosynthesis is also included in this exam. Comparison made with prior exam of 07/26/2020 and 09/11/2021 and 09/20/2022. Findings: The previously questioned 1 cm nodular density in the medial right breast at posterior depth is not d efinitely identified on magnification or tomographic views. Stable appearing coarse and microcalcific ations are noted in this region. There may also be a biopsy clip in this region. Regional sonography of this area would be indicated for further workup. Scattered fibroglandular densities in the right breast. MM/[place] [id number] Impression: Previously questioned nodular density in the medial right breast no t definitely seen on additional views. BI-RADS: 0-Incomplete: Need additional imaging evaluation FOLLOW-UP: See Report This mammogram was also analyzed by the Computer Aided Detection System R2 Imag e Fuller Brush Worker.
== END 2022-10-25 14:14 | disposition home or self-care (01) ==
LOC: RAD 14:14
PROVIDERS: PCP Nurse Practitioner Family; Visit Provider Nurse Practitioner Family
DX: R92.8 Other abnormal and inconclusive findings on diagnostic imaging of breast (principal)
CPT/HCPCS: 76642; 77061; G0279

== ENCOUNTER 2023-05-07 10:27 | Outpatient (CLI) | payer OTHER, SELFPAY ==
--- NOTE | 2023-05-07 10:46 | MM_ITS ---
WS: [email or web address] RIGHT 3D TOMOSYNTHESIS DIGITAL MAMMOGRAPHY WITH CAD CLINICAL INFORMATION: 6MFU HISTORY: 6-month follow-up calcifications COMPARISON: 10/25/2022 TECHNIQUE: 3 views of the right breast were obtained. FINDINGS: Scattered fibroglandular densities of the right breast. Previously described 1.0 cm nodular density i n the medial right breast posterior depth no longer visualized today. Biopsy clip inferior medial rig ht breast. Stable clustered calcifications inferomedial right breast. These are probably benign and r ecommend 6-month follow-up right breast diagnostic mammography with spot magnification views. IMPRESSION: MM/[place] [id number] BI-RADS: 3 FOLLOW UP: 6-month Recommend 6-month follow-up right breast diagnostic mammography with spot magni fication views.
== END 2023-05-07 10:28 | disposition home or self-care (01) ==
PROVIDERS: PCP Nurse Practitioner Family; Visit Provider Nurse Practitioner Family
DX: R92.8 Other abnormal and inconclusive findings on diagnostic imaging of breast (principal); R92.1 Mammographic calcification found on diagnostic imaging of breast
CPT/HCPCS: 77061; G0279

== ENCOUNTER 2023-11-28 13:06 | Outpatient (CLI) | payer OTHER, SELFPAY ==
--- NOTE | 2023-11-28 13:20 | MM_ITS ---
WS: [email or web address] BILATERAL 3D TOMOSYNTHESIS DIGITAL DIAGNOSTIC MAMMOGRAPHY WITH CAD CLINICAL INFORMATION: 6MFU CALCS HISTORY: 6-month follow-up calcifications. COMPARISON: 2021 TECHNIQUE: Bilateral CC, MLO, and ML views. FINDINGS: Scattered fibroglandular densities bilaterally. Biopsy clip RIGHT breast. Stable clustered calcificat ions inferior medial RIGHT breast. No evidence of progression compared to the prior studies. No new o r suspicious calcifications. LEFT breast is unchanged and unremarkable. Recommend return to annual screen mammography. IMPRESSION: MM/[place] [id number] BI-RADS: 2-Benign FOLLOW UP: 1 Year Follow-up Recommend return to annual screening mammography.
== END 2023-11-28 13:07 | disposition home or self-care (01) ==
LOC: RAD 13:06
PROVIDERS: PCP Nurse Practitioner Family; Visit Provider Nurse Practitioner Family
DX: R92.1 Mammographic calcification found on diagnostic imaging of breast (principal); R92.321 Mammographic fibroglandular density, right breast
CPT/HCPCS: 77062; G0279

== ENCOUNTER 2024-11-19 13:47 | Outpatient (CLI) | payer OTHER, SELFPAY ==
--- NOTE | 2024-11-19 14:08 | XR_ITS ---
WS: [email or web address] Exam: XR hand LT min 3V* [id number] Date/Time of Exam: 11/19/2024 2:09 PM Reason For Exam: PAIN IN LEFT HAND No acute fracture. Mild to moderate degenerative changes in the IP and MP joints. 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 No soft tissue foreign bodies are seen. XR/XR hand LT min 3V* [id number] IMPRESSION: 1. Degenerative changes. No fracture.
--- NOTE | 2024-11-19 14:09 | XR_ITS ---
WS: [email or web address] Exam: XR hand RT min 3V* [id number] Date/Time of Exam: 11/19/2024 2:09 PM Reason For Exam: PAIN IN RIGHT HAND No sign of fracture. Degenerative changes in the MP and IP joints. DJD at the CMC joint of the thumb. Normal soft tissues. XR/XR hand RT min 3V* [id number] IMPRESSION: 1. Moderate degenerative changes.
== END 2024-11-19 13:48 | disposition home or self-care (01) ==
PROVIDERS: PCP Nurse Practitioner Family; Visit Provider Nurse Practitioner Family
DX: M79.642 Pain in left hand (principal); M19.041 Primary osteoarthritis, right hand; M19.042 Primary osteoarthritis, left hand
CPT/HCPCS: 73130

== ENCOUNTER 2024-12-03 10:13 | Outpatient (CLI) | payer OTHER, SELFPAY ==
--- NOTE | 2024-12-03 10:20 | MM_ITS ---
WS: [email or web address] BILATERAL SCREENING DIGITAL TOMOSYNTHESIS MAMMOGRAM WITH CAD HISTORY: SCREENING COMPARISON: 11/28/2023, 05/07/2023, 10/25/2022 Bilateral CC and MLO views with tomosynthesis and synthetic mammography submitted. Computer aided detection analyzed. Breast composition: There are scattered areas of fibroglandular density. No suspicious masses, microcalcifications or architectural distortion. Benign calcifications in each breast. MM/MM scr tomosynthesis [id number] IMPRESSION: BI-RADS: 2 - Benign. FOLLOW UP: 1 Year Follow-up
== END 2024-12-03 10:14 | disposition home or self-care (01) ==
LOC: RAD 10:16
PROVIDERS: PCP Nurse Practitioner Family; Visit Provider Nurse Practitioner Family
DX: Z12.31 Encounter for screening mammogram for malignant neoplasm of breast (principal); R92.323 Mammographic fibroglandular density, bilateral breasts; R92.1 Mammographic calcification found on diagnostic imaging of breast
CPT/HCPCS: 77063; 77067